=== PATIENT | male | born 1960 | race Caucasian/White ===

== ENCOUNTER 2024-05-01 10:45 | Emergency (ER) | payer OTHER ==
--- NOTE | 2024-05-01 12:28 | RAD REPORT ---
EXAM DESCRIPTION: US - Extrem Venous W Compress Andrea - 05/01/2024 12:21 pm CLINICAL HISTORY: Pain;Swelling COMPARISON: No comparisons TECHNIQUE: Real-time sonographic evaluation of the lower extremity deep venous systems was performed using color Doppler, grayscale, and compression. FINDINGS: Bilateral lower extremities. Normal compressibility, flow augmentation, phasic flow and spontaneous flow is identified in both the left and right lower extremity deep venous systems. No intraluminal filling defects seen. IMPRESSION: No DVT in either lower extremity.
--- NOTE | 2024-05-01 12:28 | RAD REPORT ---
EXAM DESCRIPTION: RAD - Chest Single View - 05/01/2024 12:22 pm CLINICAL HISTORY: COUGH COMPARISON: No comparisons FINDINGS: Lines: None. Lungs: No evidence of edema or pneumonia. Pleural: No significant pleural effusions or pneumothorax. Cardiac: The heart size is within normal limits. Mediastinum: Within normal limits. Bones: No acute fractures. Fusion hardware in the cervical spine. Other: None IMPRESSION: No acute cardiopulmonary disease.
--- NOTE | 2024-05-01 12:36 | RAD REPORT ---
EXAM DESCRIPTION: US - Lower Extremity Arterial Bilat - 05/01/2024 12:21 pm CLINICAL HISTORY: Swelling COMPARISON: None FINDINGS: Color Doppler, grayscale, and spectral analysis was performed. Right lower extremity: Heavily calcified right common femoral and proximal superficial femoral arteri es. Monophasic flow is present. The mid and distal SFA are occluded. The popliteal artery is occluded . The dorsalis pedis and posterior tibial arteries are occluded. Left lower extremity: The left common femoral artery is heavily calcified and occluded. The left SFA has monophasic flow. The popliteal artery, posterior tibial artery, and dorsalis pedis arteries have monophasic flow as well. IMPRESSION: 1. Right lower extremity: Occluded mid and distal superficial femoral, popliteal, med care manager ior tibial, and dorsalis pedis arteries. The right common femoral and proximal superficial femoral ar teries have monophasic flow and are likely severely stenotic. 2. Left lower extremity: Occluded left common femoral artery. The left superficial femoral, popliteal , posterior tibial, and dorsalis pedis arteries have monophasic flow likely due to the upstream occlu markos.
[2024-05-01 12:45] LABS: Absolute Eosinophils 0.1 K/uL (0-0.5); Absolute Lymphocytes (CBC) 1.1 K/uL (0.7-4.9); Absolute Monocytes 0.6 K/uL (0.1-1.3); Absolute Neutrophil 3.6 K/uL (1.8-8.0); Basophils % 0.4 % (0-1.3); Eosinophils % 1.2 % (0-4.4); Hematocrit 41.8 % (39.6-49.0); Lymphocytes % 20.5 % (15.3-44.8); MCH 31.7 pg (27.0-35.0); MCHC 33.6 g/dL (32.0-36.0); MCV 94.2 fL (80-100); MPV 7.5 fL (7.6-11.3); Monocytes % 10.5 % (3.3-12.3); Neutrophils % 67.4 % (41.7-73.7); Platelets 223 thou/uL (152-406); RBC Red Blood Cell Count 4.43 M/uL (4.33-5.43); Red Cell Distribution Width 13.6 % (12.1-15.2)
--- NOTE | 2024-05-01 12:46 | EDPHYS ---
Physician Documentation [facility] Name: Stephan Bach Age: 64 yrs Sex: Male : 1960 Arrival Date: 05/01/2024 Time: 10:45 Bed 5 Private MD: ED Physician Raul Trujillo HPI: 05/01 11:32 This 64 yrs old Male presents to ER via Ambulatory with complaints of Leg Pain. rn 11:32 The patient presents with pain, swelling. The complaints affect the right leg and left rn leg. Onset: The symptoms/episode began/occurred 1 month(s) ago. Modifying factors: The symptoms are alleviated by nothing. the symptoms are aggravated by nothing. Severity of symptoms: At their worst the symptoms were moderate, in the emergency department the symptoms are unchanged. The patient has not experienced similar symptoms in the past. Patient sent from [facility] for evaluation of lower extremity swelling and leg wounds. Doctor at [facility] reported concern for nonhealing wounds and possible infection. Patient reports completed course of antibiotics a week ago and did not do anything for the wounds. Reports ongoing smoker. No drainage or fever or chills. Patient does not feel ill. No known history of heart failure or kidney problems. Patient is a daily drinker without a diagnosis of cirrhosis. Reports shortness of breath but not any different from his normal dyspnea. Never diagnosed with COPD but has more than 30-year smoking history. Historical: - Allergies: 11:10 TETRACYCLINES; ap3 - PMHx: 11:10 Hypertensive disorder; Hypercholesterolemia; ap3 - Infectious Disease History:: Denies. - Social history:: Smoking status: Patient reports the use of cigarette tobacco products, smokes one-half pack cigarettes per day, Patient uses alcohol, on a daily basis. admits to "couple of beers" a day. - Family history:: not pertinent. - Hospitalizations: : No recent hospitalization is reported. ROS: 11:32 Constitutional: Negative for fever, chills, and weight loss, Cardiovascular: Negative rn for chest pain, palpitations, and edema, Respiratory: Negative for shortness of breath, cough, wheezing, and pleuritic chest pain, Abdomen/GI: Negative for abdominal pain, nausea, vomiting, diarrhea, and constipation, MS/Extremity: Positive for swelling and pain to bilateral lower extremities. Skin: Chronic nonhealing wounds to the right ankle and back of right knee. Neuro: Negative for headache, weakness, numbness, tingling, and seizure, Exam: 11:32 Constitutional: This is a well developed, well nourished patient who is awake, alert, rn and in no acute distress. Cardiovascular: Regular rate and rhythm. No pulse deficits. Respiratory: No increased work of breathing, no retractions or nasal flaring. Abdomen/GI: Soft, non-tender MS/ Extremity: No cyanosis. Chronic nonhealing wounds to the back of right knee and right posterior ankle, no drainage. 2+ pitting edema bilateral lower extremities Neuro: Awake and alert, GCS 15 16:18 ECG was reviewed by the Attending Physician. rn Vital Signs: 11:08 BP 108 / 64; Pulse 63; Resp 17; Temp 97.9; Pulse Ox 97% ; Weight 89.81 kg; Height 6 ft. ap3 0 in. ; Pain 7/10; 14:03 BP 110 / 74; Pulse 69; Resp 18; Pulse Ox 98% on R/A; rs5 17:11 BP 115 / 77; Pulse 73; Resp 17; Pulse Ox 98% on R/A; rs5 11:08 Body Mass Index 26.85 (89.81 kg, 182.88 cm) ap3 11:08 Pain Scale: Adult ap3 MDM: 11:04 Patient medically screened. rn 12:44 Differential diagnosis: Cellulitis, nonhealing wounds, peripheral arterial disease, rn arterial occlusion. Data reviewed: vital signs, nurses notes, lab test result(s), radiologic studies, ultrasound, and as a result, I will admit patient. Consideration of Admission/Observation Patient was admitted/placed on observation. Escalation of care including admission/observation considered. Care significantly affected by the following chronic conditions: Hypertension. Counseling: I had a detailed discussion with the patient and/or guardian regarding the historical points, exam findings, and any diagnostic results supporting the discharge/admit diagnosis, lab results, radiology results, the need for further work-up and treatment in the hospital, the need to transfer to another facility, for higher level of care, [facility] does not immediately have the required specialist. ED course: Patient with occlusion of right superficial femoral artery and distal to that there is no blood flow. Explains pain in swelling and discoloration of the right lower extremity. [facility] start heparin [facility] ED course: I personally spent 35 minutes engaged in work directly related to the individual patient's care. This does not include any time spent performing procedures. The patient has been deemed critically ill because of acute arterial occlusion of the right lower extremity raising concern for loss of limb and acute ischemia, organization of transfer, initiation of heparin drip.. 05/01 11:28 Order name: Blood Culture Adult (2) rn 05/01 11:28 Order name: CBC with Diff; Complete Time: 13:08 rn 05/01 11:28 Order name: CMP; Complete Time: 13:08 rn 05/01 11:28 Order name: Lactate w/ 2H reflex if indic.; Complete Time: 13: rn 05/01 11:28 Order name: Protime (+inr); Complete Time: 13: rn 05/01 11:28 Order name: Ptt, Activated; Complete Time: 13:08 rn 05/01 11:28 Order name: BNP; Complete Time: 13:08 rn 05/01 11:28 Order name: Troponin High Sensitivity; Complete Time: 13:08 rn 05/01 11:28 Order name: Chest Single View XRAY; Complete Time: 12:37 rn 05/01 11:28 Order name: Extrem Venous W Compression Andrea US; Complete Time: 12:37 rn 05/01 11:28 Order name: Lower Extremity Arterial Bilat US; Complete Time: 12:37 rn 05/01 11:28 Order name: EKG; Complete Time: 11:28 rn 05/01 11:28 Order name: Accucheck; Complete Time: 12:58 rn 05/01 11:28 Order name: Cardiac monitoring; Complete Time: 12:58 rn 05/01 11:28 Order name: EKG - Nurse/Tech; Complete Time: 14:06 rn 05/01 11:28 Order name: IV Saline Lock - Large Bore; Complete Time: 12:58 rn 05/01 11:28 Order name: Labs collected and sent; Complete Time: 12:58 rn 05/01 11:28 Order name: O2 Per Protocol; Complete Time: 12:58 rn 05/01 11:28 Order name: O2 Sat Monitoring; Complete Time: 12:58 rn 05/01 11:28 Order name: Vital Signs; Complete Time: 12:58 rn EC:18 Rate is 81 beats/min. Rhythm is irregular. QRS [place] is Normal. No Q waves. T waves are rn Normal. No ST changes noted. Clinical impression: Atrial Fibrillation. Interpreted by me. Reviewed by me. Administered Medications: 13:22 Drug: Heparin (DVT/PE- Bolus per protocol) - HEParin IVP 80 units/kg IVP once; Max rs5 8,000 units {Co-Signature: bulmaro (Sandy Gan RN).} Route: IVP; Site: right antecubital; 13:40 Follow up: Response: No adverse reaction rs5 13:22 Drug: Heparin (DVT/PE Drip) 18 units/kg/[place] - ([place] [address] units, D5W IV 500 ml) IV rs5 at calculated rate Per protocol; Max initial rate 1800 units/hr {Co-Signature: [email or web address] (Sandy Gan RN).} Route: IV; Rate: calculated rate; Site: right antecubital; 13:40 Follow up: Response: No adverse reaction rs5 17:12 Follow up: IV Status: Infusion continued rs5 13:45 Drug: NS 0.9% IV 500 ml IV at bolus once Route: IV; Rate: bolus; Site: left antecubital;rs5 14:22 Follow up: IV Status: Completed infusion rs5 13:45 Drug: morphine IVP or IV 4 mg IVP once over 4 mins Route: IVP; Infused Over: 4 mins; rs5 Site: left antecubital; 14:10 Follow up: Response: No adverse reaction; Pain is decreased rs5 Disposition Summary: 05/01/24 12:46 Transfer Ordered Notes: Transfer Location: [facility] rn Reason: Higher level of care rn Condition: Stable rn Problem: new rn Symptoms: are unchanged rn Accepting Physician: (05/01/24 18:03) quin Diagnosis - Acute arterial occlusion of right leg rn Forms: - Medication Reconciliation Form rn - SBAR form anesthesiology crna time excluding procedures: 12:44 Critical care time: Consultation: 35 minutes. Total time: 35 minutes rn Signatures: Dispatcher [employer] EDRaul Guillen MD MD rn Prokisch, Amanda, RN RN ap3 Anais Hunt Ricky, RN RN rs5 Sandy Gan RN3 Corrections: (The following items were deleted from the chart) 11:28 Lower Extremity Arterial Bilat+US.RAD.BRZ ordered. EDMS EDMS 11: PROBNP+C.LAB.BRZ ordered. EDMS EDMS 11: Troponin High Sensitivity+C.LAB.BRZ ordered. EDMS EDMS 18:03 12:46 Dr. menchaca eb
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
[2024-05-01 12:53] LABS: PT Prothrombin Time 11.6 SECONDS (9.4-12.5); PTT, Activated Partial Thromb 34.7 SECONDS (24.3-36.9); Protime INR 1.04
[2024-05-01] MEDS ORDERED: HEPARIN 5000 UNIT/ML 1 ML VIAL ONE ×2 (13:00→13:12)
[2024-05-01] MEDS ORDERED: HEPARIN/D5W 25,000 UNIT/500 ML BAG IV ONE (13:01)
[2024-05-01] MEDS ORDERED: NA CHLORIDE 0.9% 500 ML ONE (13:01)
[2024-05-01 13:04] LABS: Albumin 3.6 g/dL (3.4-5.0); Albumin/Globulin Ratio 0.9 (1.1-1.8); Anion Gap 10.7 mEq/L (5.0-15.0); Bilirubin Total 0.7 mg/dL (0.2-1.0); Potassium 3.7 mEq/L (3.5-5.1); Protein, Total 7.6 g/dL (6.4-8.2); Troponin High Sensitivity 7.5 pg/mL (<58.9)
[2024-05-01] MEDS ORDERED: MORPHINE 4 MG/ML SYR ONE (13:25)
[2024-05-01 18:44] VITALS: TEMP 97.9
[2024-05-01 18:45] VITALS: O2SAT 98
[2024-05-01 18:46] VITALS: BP 115/77
== END 2024-05-01 18:03 ==
LOC: ER 10:45
DX: I70.8 Atherosclerosis of other arteries (principal); F17.210 Nicotine dependence, cigarettes, uncomplicated
CPT/HCPCS: 93005; 87040 ×2; 85025; 36415; 85610; 83605; 85730; 84484; 80053; 83880; 71045; 93925; 93970; 99285; J1644 ×2; J7040